=== PATIENT | female | born 2000 | race African-American/Black ===

== ENCOUNTER 2025-04-16 12:42 | Emergency (ER) | payer OTHER ==
[~2025-04-16] VITALS: Ht 162.6 cm; Wt 54.0 kg
[2025-04-16 14:10] VITALS: BP 131/87; TEMP 98; O2SAT 100
== END 2025-04-16 14:10 | disposition home or self-care (01) ==
LOC: ER 12:45
DX: F41.9 Anxiety disorder, unspecified (principal)